=== PATIENT | female | born 1955 | race African-American/Black ===

== ENCOUNTER 2021-02-17 14:15 | Emergency (ER) | payer OTHER ==
[~2021-02-17] VITALS: Ht 160 cm; Wt 45.0 kg
[2021-02-17] MEDS ORDERED: IPRATROPIUM BROMIDE (0.02%) 0.5MG/2.5ML NEB HHN STA (18:39)
[2021-02-17] MEDS ORDERED: PREDNISONE 20MG TABLET PO STA (18:39)
[2021-02-17 19:34] LABS: BASOPHILS % 0.8 % (0.0-2.0); EOSINOPHILS % 1.8 % (0.0-5.0); HEMATOCRIT. 41.9 % (36.0-48.0); HEMOGLOBIN. 13.6 g/dL (12.0-16.0); LYMPHOCYTES % 22.4 % (20.0-50.0); MEAN CORPUSCULAR HEMOGLOBIN 30.8 pg (28.0-32.0); MEAN CORPUSCULAR VOLUME 94.7 fL (81.0-99.0); MONOCYTES % 9.5 % (2.0-8.0); NEUTROPHILS % 65.5 % (40.0-76.0); PLATELET 201 x1000/uL (130-400); RED BLOOD CELL COUNT 4.43 mill/uL (4.2-5.4); RED CELL DISTRIBUTION WIDTH 13.8 % (11.6-14.6)
[2021-02-17 19:40] LABS: CHLORIDE 111 mEq/L (98-107)
[2021-02-17] MEDS: ALBUTEROL (0.083%) 2.5MG/3ML NEB HHN SCH ×3 (19:41→20:01)
[2021-02-17] MEDS ORDERED: DOXY-326 MT (20:39)
[2021-02-17] MEDS ORDERED: P20 MT (20:39)
[2021-02-17 20:50] VITALS: BP 150/83
== END 2021-02-17 20:51 | disposition home or self-care (01) ==
LOC: ER 14:15
DX: J44.1 Chronic obstructive pulmonary disease with (acute) exacerbation (principal); Z88.6 Allergy status to analgesic agent; Z98.890 Other specified postprocedural states
CPT/HCPCS: 36415; 71045; 80053; 84484; 85025; 93005; 94640; 99285; J7512; Z7610

== ENCOUNTER 2024-07-30 21:01 | Inpatient (IN) | payer MEDICAID ==
[~2024-07-30] VITALS: Ht 160 cm; Wt 59.0 kg
[~2024-07-30 21:01] MED LIST: ALBU6.7H15 INH; AMLO-905 PO; ATOR20TA65 PO; FLUO-413 PO; MULT-1146 MT; PREG50CA PO; TIOT4MIS5 IH; TRAZ-251 PO
[2024-07-30] MEDS: METHYLPREDNISOLONE SOD SUCC 125MG/2ML (ACT-O-VIAL) IV STA (21:55)
[2024-07-30 22:26] LABS: BG BASE EXCESS 2.1 mmol/L (-2.0-3.0); BG DEOXYHEMOGLOBIN 7.2 % (0.0-5.0); BG FRACTION INSPIRED OXYGEN 21; BG HCO3 ACT 26.4 mmol/L (21.0-28.0); BG METHEMOGLOBIN 0.3 % (0.5-1.5); BG OXYGEN SATURATION 92.6 % (94.0-98.0); BG OXYHEMOGLOBIN 90.5 % (94.0-98.0); BG PCO2 40.2 mmHg (32.0-45.0); BG PH 7.436 (7.350-7.450); BG PO2 63.8 mmHg (83.0-108.0); BG SAMPLE SITE RIGHT RADIAL; BG TOTAL HEMOGLOBIN 14.4 g/dL (12.0-16.0); BG VENT MODE ROOM AIR
[2024-07-30] MEDS: MAGNESIUM 2 G PREMIX 50 ML IV ONE (22:31)
[2024-07-30] MEDS: IPRATROPIUM BROMIDE (0.02%) 0.5MG/2.5ML NEB HHN STA (23:07)
[2024-07-30] MEDS: ALBUTEROL (0.083%) 2.5MG/3ML NEB HHN SCH (23:07)
[2024-07-30 23:08] VITALS: PULSE 95; RESP 20; O2SAT 100
[2024-07-30 23:48] LABS: BASOPHILS % 1.3 % (0.0-2.0); EOSINOPHILS % 4.5 % (0.0-5.0); HEMATOCRIT. 44.3 % (36.0-48.0); HEMOGLOBIN. 14.6 g/dL (12.0-16.0); LYMPHOCYTES % 43.8 % (20.0-50.0); MEAN CORPUSCULAR HEMOGLOBIN 30.5 pg (28.0-32.0); MEAN CORPUSCULAR VOLUME 92.2 fL (81.0-99.0); MEAN PLATELET VOLUME 8.7 fl (7.4-10.4); MONOCYTES % 6.3 % (2.0-8.0); NEUTROPHILS % 44.1 % (40.0-76.0); PLATELET 262 x1000/uL (130-400); RED CELL DISTRIBUTION WIDTH 12.9 % (11.6-14.6); WHITE BLOOD COUNT 6.7 x1000/uL (4.5-11.0)
[2024-07-31] VITALS (8 sets, daily range): BP systolic 130–188; BP diastolic 68–95; PULSE 71–92; RESP 17–20; TEMP 35.7–36.6; O2SAT 95–99
[2024-07-31 00:02] LABS: CHLORIDE 104 mEq/L (98-107); POTASSIUM 3.7 mEq/L (3.5-5.1); SODIUM 141 mEq/L (136-145)
[2024-07-31 00:03] LABS: CALCIUM 10.5 mg/dL (8.7-10.4); CARBON DIOXIDE 31 mEq/L (21-32)
[2024-07-31 00:08] LABS: CREATININE 0.7 mg/dL (0.6-1.0); GLUCOSE 163 mg/dL (70-105); UREA NITROGEN BLOOD 14 mg/dL (9-23)
[2024-07-31 00:10] LABS: TROPONIN I HIGH SENSITIVITY 4 ng/L (3.0-34)
[2024-07-31] MEDS: IBUPROFEN 600MG TABLET PO ONE (02:48)
[2024-07-31 02:54] LABS: TROPONIN I HIGH SENSITIVITY 8 ng/L (3.0-34)
[2024-07-31] MEDS: METHYLPREDNISOLONE SOD SUCC 40MG/ML (ACT-O-VIAL) IV SCH (11:41)
[2024-07-31] MEDS: IPRATROPIUM/ALBUTEROL 0.5-3(2.5)MG/3ML NEB HHN SCH (13:48)
[2024-07-31] MEDS: BUDESONIDE 0.5MG/2ML NEB HHN SCH (17:18)
[2024-07-31] MEDS: MONTELUKAST SODIUM 10MG TABLET PO SCH (17:54)
[2024-07-31 21:02] LABS: HEPATITIS B SURFACE ANTIGEN NEGATIVE (Negative)
[2024-07-31 21:24] LABS: HEPATITIS C AB NON REACTIVE (Neg) (Negative)
[2024-08-01] VITALS (8 sets, daily range): BP systolic 110–134; BP diastolic 58–81; PULSE 17–96; RESP 16–20; TEMP 35.8–36.4; O2SAT 94–98
[2024-08-01] MEDS ORDERED: ALEN10TA25 PO (15:20)
[2024-08-01] MEDS: PANTOPRAZOLE SODIUM 40 MG/VIAL IV SCH (17:46)
[2024-08-01] MEDS: ENOXAPARIN 40MG/0.4ML SYR SUBCUT SCH (17:46)
[2024-08-01] MEDS: PREGABALIN 50 MG CAPSULE PO SCH (21:18)
[2024-08-01] MEDS: TRAZODONE HCL 50MG TABLET PO SCH (21:18)
[2024-08-02] VITALS (10 sets, daily range): BP systolic 130–172; BP diastolic 64–105; PULSE 85–105; RESP 18–22; TEMP 36.1–36.9; O2SAT 96–99
[2024-08-02] MEDS ORDERED: *PATIENT'S OWN MEDICATION STORAGE XX SCH (01:15)
[2024-08-02 08:08] LABS: CARBON DIOXIDE 27 mEq/L (21-32); CHLORIDE 106 mEq/L (98-107); POTASSIUM 4.4 mEq/L (3.5-5.1); SODIUM 142 mEq/L (136-145)
[2024-08-02 08:09] LABS: CALCIUM 10.4 mg/dL (8.7-10.4)
[2024-08-02 08:13] LABS: CREATININE 0.8 mg/dL (0.6-1.0)
[2024-08-02 08:14] LABS: GLUCOSE 124 mg/dL (70-105); UREA NITROGEN BLOOD 21 mg/dL (9-23)
[2024-08-02 08:50] LABS: HEMATOCRIT. 44.9 % (36.0-48.0); HEMOGLOBIN. 14.4 g/dL (12.0-16.0); MEAN CORPUSCULAR HEMOGLOBIN 29.9 pg (28.0-32.0); MEAN CORPUSCULAR VOLUME 93.2 fL (81.0-99.0); MEAN PLATELET VOLUME 8.7 fl (7.4-10.4); PLATELET 206 x1000/uL (130-400); RED BLOOD CELL COUNT 4.82 mill/uL (4.2-5.4); RED CELL DISTRIBUTION WIDTH 13.3 % (11.6-14.6); WHITE BLOOD COUNT 8.3 x1000/uL (4.5-11.0)
[2024-08-02] MEDS ORDERED: MEDICATION NOT ON FORMULARY EA (Multivitamin (Multi Vitamin Daily) 1 TAB) MT SCH (09:00)
[2024-08-02] MEDS: MULTIVITAMINS,THER W-MINERALS TABLET PO SCH (09:13)
[2024-08-02] MEDS: FLUOXETINE HCL 20MG CAPSULE PO SCH (09:13)
[2024-08-02] MEDS: AMLODIPINE 10MG TABLET PO SCH (09:14)
[2024-08-02] MEDS: ALENDRONATE SODIUM 10 MG PO SCH (09:14)
[2024-08-02 09:17] LABS: DIFFERENTIAL COMMENT 1
[2024-08-02 18:21] LABS: PLATELET ESTIMATE NORMAL
[2024-08-02] MEDS ORDERED: ATORVASTATIN CALCIUM 20MG TABLET PO SCH (21:00)
[2024-08-03] MEDS ORDERED: FAMOTIDINE 20MG/2ML VIAL IV SCH (09:00)
== END 2024-08-02 17:24 | disposition home or self-care (01) | DRG 192 ==
LOC: ER 21:01 → 7WST 07-31 01:39 → EDBEDREQ 07-31 03:04 → EDBEDREQTM 07-31 03:04 → EDBEDREQDT 07-31 03:04
PROVIDERS: ADMIT Internal Medicine; ATTEND Internal Medicine
DX: J44.1 Chronic obstructive pulmonary disease with (acute) exacerbation (principal); E78.00 Pure hypercholesterolemia, unspecified; I10 Essential (primary) hypertension; Z87.891 Personal history of nicotine dependence; Z99.81 Dependence on supplemental oxygen; Z86.73 Personal history of transient ischemic attack (TIA), and cerebral infarction without residual deficits; Z88.5 Allergy status to narcotic agent; Z79.899 Other long term (current) drug therapy
CPT/HCPCS: 36415; 36600; 71045; 80048; 82375; 82805; 83605; 83880; 84484; 85025; 86705; 87340; 93005; 94070; 94640; 94664; 98960; 99291; J1650; J2470; J2919; J3475; J7626